=== PATIENT | male | born 1990 | race African-American/Black ===

== ENCOUNTER 2017-05-01 13:04 | Emergency (ER) | payer OTHER ==
[2017-05-01] MEDS ORDERED: Ibuprofen 200 MG TAB ONE (13:37)
== END 2017-05-01 13:42 | disposition home or self-care (01) ==
LOC: NAV ERS 13:04
DX: M26.601 Right temporomandibular joint disorder, unspecified (principal); F17.210 Nicotine dependence, cigarettes, uncomplicated; F20.9 Schizophrenia, unspecified; F31.9 Bipolar disorder, unspecified; Z79.899 Other long term (current) drug therapy
CPT/HCPCS: 99406

== ENCOUNTER 2019-12-02 20:03 | Emergency (ER) | payer OTHER ==
[2019-12-02 20:51] LABS: Hemoglobin 14.2 g/dL (14.0-18.0); Mean Corpuscular HGB CONC 31.6 g/dL (32.0-36.0); Mean Corpuscular Volume 91.9 fL (78.0-98.0); Mean Platelet Volume 8.2 fL (7.4-10.4); Platelet Count 232 thou/uL (130-400); Red Blood Cell (RBC) Count 4.88 mill/uL (4.70-6.10); White Blood Cell (WBC) Count 4.8 thou/uL (4.8-10.8)
[2019-12-02 20:59] LABS: Amphetamine Not Detected (NotDetected); Barbiturates Screen Not Detected (NotDetected); Benzodiazepine Screen Not Detected (NotDetected); Cocaine Metabolite Screen Not Detected (NotDetected); Medtox Control Line Valid? VALID (VALID); Methadone Not Detected (NotDetected); Methamphetamine Not Detected (NotDetected); Opiate Screen Not Detected (NotDetected); Oxycodone Screen Not Detected (NotDetected); Phencyclidine (PCP) Not Detected (NotDetected); THC/Cannabinoid Screen Not Detected (NotDetected); Tricyclic Screen Not Detected (NotDetected)
[2019-12-02 21:02] LABS: ALT (SGPT) 14 U/L (8-55); AST (SGOT) 18 U/L (5-34); Acetaminophen Less than 6.0 mcg/mL (10.0-30.0); Albumin 4.8 g/dL (3.5-5.0); Alcohol Less than 10 mg/dL (Less than 10); Alkaline Phosphatase 61 U/L (40-110); Anion Gap 17 mmol/L (10-20); BUN (Urea Nitrogen) 16 mg/dL (8.9-20.6); Bilirubin, Total 0.9 mg/dL (0.2-1.2); CK (CPK) 336 U/L (30-200); Calc. Creatinine Clearance 0 mL/min (70-130); Calcium 9.6 mg/dL (7.8-10.44); Carbon Dioxide 27 mmol/L (22-29); Chloride 101 mmol/L (98-107); Estimated GFR-MDRD 79; Globulin 2.8 g/dL (2.4-3.5); Glucose 146 mg/dL (70-105); Potassium 4.5 mmol/L (3.5-5.1); Protein, Total 7.6 g/dL (6.0-8.3); Salicylate Less than 8.0 mg/dL (15.0-30.0); Sodium 140 mmol/L (136-145)
[2019-12-02 21:16] LABS: Band 1 % (5-11); Eosinophils 4 % (0-10); Lymphocytes 68 % (21-51); MDiff Complete? YES; Neutrophil 27 % (42-75); RBC Morphology Normal
[2019-12-02] MEDS ORDERED: Sodium Chloride 0.9% 1,000 ML ONE (21:36)
== END 2019-12-03 04:33 ==
LOC: NAV ERS 20:03
DX: F20.9 Schizophrenia, unspecified (principal); F31.9 Bipolar disorder, unspecified; F17.210 Nicotine dependence, cigarettes, uncomplicated; Z79.899 Other long term (current) drug therapy
CPT/HCPCS: 80053; 80306; 80307; 82550; 84443; 85025; 99285; J7050

== ENCOUNTER 2020-02-18 15:58 | Emergency (ER) | payer OTHER ==
[2020-02-18 19:07] LABS: ALT (SGPT) 11 U/L (8-55); AST (SGOT) 14 U/L (5-34); Albumin 4.7 g/dL (3.5-5.0); Alkaline Phosphatase 55 U/L (40-110); Anion Gap 16 mmol/L (10-20); BUN (Urea Nitrogen) 12 mg/dL (8.9-20.6); Bilirubin, Total 0.4 mg/dL (0.2-1.2); Calc. Creatinine Clearance 0 mL/min (70-130); Calcium 9.3 mg/dL (7.8-10.44); Carbon Dioxide 24 mmol/L (22-29); Chloride 102 mmol/L (98-107); Globulin 2.9 g/dL (2.4-3.5); Glucose 130 mg/dL (70-105); Potassium 3.7 mmol/L (3.5-5.1); Protein, Total 7.6 g/dL (6.0-8.3); Sodium 138 mmol/L (136-145)
[2020-02-18 19:14] LABS: Bilirubin Negative (Negative); Blood, Urine Negative (Negative); Clarity Clear (Clear); Glucose, Urine (Dipstick) Negative (Negative); Ketone, Urine Negative (Negative); Leukocyte Negative (Negative); Nitrite Negative (Negative); Protein, Urine (Dipstick) Negative (Neg-Trace); pH, Urine 6.5 (5.0-9.0)
[2020-02-18 19:17] LABS: Amphetamine Not Detected (NotDetected); Barbiturates Screen Not Detected (NotDetected); Benzodiazepine Screen Not Detected (NotDetected); Cocaine Metabolite Screen Not Detected (NotDetected); Methadone Not Detected (NotDetected); Methamphetamine Not Detected (NotDetected); Opiate Screen Not Detected (NotDetected); Oxycodone Screen Not Detected (NotDetected); Phencyclidine (PCP) Not Detected (NotDetected); THC/Cannabinoid Screen Not Detected (NotDetected); Tricyclic Screen Not Detected (NotDetected)
[2020-02-18 19:18] LABS: Medtox Control Line Valid? VALID (VALID)
[2020-02-18 19:20] LABS: Acetaminophen Less than 10.0 mcg/mL (10.0-30.0); Alcohol Less than 10 mg/dL (Less than 10); Salicylate Less than 8.0 mg/dL (15.0-30.0)
[2020-02-18 19:30] LABS: #Eosinphils 0.3 thou/uL (0.0-0.7); #Lymphocytes 2.2 thou/uL (1.20-3.40); #Monocytes 0.5 thou/uL (0.11-0.59); #Neutrophils 2.4 thou/uL (1.40-6.50); %Basophils 0.8 % (0.0-1.0); %Eosinophils 6.3 % (0.0-10.0); %Lymphocytes 39.7 % (21.0-51.0); %Monocytes 9.2 % (0.0-10.0); Hemoglobin 16.2 g/dL (14.0-18.0); Mean Corpuscular HGB CONC 33.4 g/dL (32.0-36.0); Mean Corpuscular Hemoglobin 30.8 pg (27.0-31.0); Mean Corpuscular Volume 92.3 fL (78.0-98.0); Mean Platelet Volume 7.4 fL (7.4-10.4); Platelet Count 259 thou/uL (130-400); RBC Distribution Width 12.3 % (11.5-14.5); Red Blood Cell (RBC) Count 5.25 mill/uL (4.70-6.10); White Blood Cell (WBC) Count 5.4 thou/uL (4.8-10.8)
== END 2020-02-19 02:04 ==
LOC: NAV ERS 15:58
DX: F20.9 Schizophrenia, unspecified (principal); F17.200 Nicotine dependence, unspecified, uncomplicated; Z79.899 Other long term (current) drug therapy
CPT/HCPCS: 80053; 80306; 80307; 81003; 84443; 85025; 99285

== ENCOUNTER 2020-04-05 14:09 | Emergency (ER) | payer OTHER ==
[2020-04-05 14:50] LABS: #Basophils 0.1 thou/uL (0.0-0.2); #Eosinphils 0.2 thou/uL (0.0-0.7); #Lymphocytes 1.7 thou/uL (1.20-3.40); #Monocytes 0.5 thou/uL (0.11-0.59); %Basophils 0.9 % (0.0-1.0); %Eosinophils 2.8 % (0.0-10.0); %Lymphocytes 25.9 % (21.0-51.0); %Monocytes 8.1 % (0.0-10.0); %Neutrophils 62.3 % (42.0-75.0); Mean Corpuscular HGB CONC 33.4 g/dL (32.0-36.0); Mean Corpuscular Hemoglobin 30.1 pg (27.0-31.0); Mean Platelet Volume 7.6 fL (7.4-10.4); Platelet Count 223 thou/uL (130-400); RBC Distribution Width 11.9 % (11.5-14.5); Red Blood Cell (RBC) Count 4.99 mill/uL (4.70-6.10); White Blood Cell (WBC) Count 6.4 thou/uL (4.8-10.8)
[2020-04-05 14:55] LABS: ALT (SGPT) 14 U/L (8-55); AST (SGOT) 17 U/L (5-34); Acetaminophen Less than 6.0 mcg/mL (10.0-30.0); Albumin 4.2 g/dL (3.5-5.0); Alcohol Less than 10 mg/dL (Less than 10); Alkaline Phosphatase 53 U/L (40-110); Anion Gap 14 mmol/L (10-20); BUN (Urea Nitrogen) 5 mg/dL (8.9-20.6); Bilirubin, Total 0.5 mg/dL (0.2-1.2); CK (CPK) 452 U/L (30-200); Calc. Creatinine Clearance 0 mL/min (70-130); Calcium 8.4 mg/dL (7.8-10.44); Carbon Dioxide 23 mmol/L (22-29); Chloride 98 mmol/L (98-107); Globulin 2.6 g/dL (2.4-3.5); Glucose 104 mg/dL (70-105); Potassium 3.1 mmol/L (3.5-5.1); Protein, Total 6.8 g/dL (6.0-8.3); Salicylate Less than 8.0 mg/dL (15.0-30.0); Sodium 132 mmol/L (136-145)
[2020-04-05 15:13] LABS: Amphetamine Not Detected (NotDetected); Barbiturates Screen Not Detected (NotDetected); Benzodiazepine Screen Not Detected (NotDetected); Cocaine Metabolite Screen Not Detected (NotDetected); Medtox Control Line Valid? VALID (VALID); Methadone Not Detected (NotDetected); Methamphetamine Not Detected (NotDetected); Opiate Screen Not Detected (NotDetected); Oxycodone Screen Not Detected (NotDetected); Phencyclidine (PCP) Not Detected (NotDetected); THC/Cannabinoid Screen Not Detected (NotDetected); Tricyclic Screen Not Detected (NotDetected)
[2020-04-05 15:23] LABS: Bilirubin Negative (Negative); Blood, Urine Negative (Negative); Clarity Clear (Clear); Glucose, Urine (Dipstick) Negative (Negative); Ketone, Urine Negative (Negative); Leukocyte Negative (Negative); Nitrite Negative (Negative); Protein, Urine (Dipstick) Negative (Neg-Trace); Urobilinogen 0.2 mg/dL (Less than 2)
[2020-04-05] MEDS ORDERED: Haloperidol 5 MG TAB ONE (18:49)
[2020-04-06 00:12] LABS: SARS-CoV-2 NAA Rapid Test Not Detected (NotDetected)
[2020-04-06] MEDS ORDERED: Nicotine 21 MG PATCH ONE (07:48)
[2020-04-06] MEDS ORDERED: Potassium Chloride 20 MEQ TAB ONE (08:49)
[2020-04-06] MEDS ORDERED: Haloperidol 5 MG TAB ONE (11:09)
== END 2020-04-06 13:48 ==
LOC: NAV ERS 14:09
DX: F23 Brief psychotic disorder (principal); E87.6 Hypokalemia; F17.210 Nicotine dependence, cigarettes, uncomplicated; Z79.899 Other long term (current) drug therapy
CPT/HCPCS: 0240U; 80053; 80306; 80307; 81003; 82550; 84443; 85025; 99285

== ENCOUNTER 2020-09-23 19:53 | Emergency (ER) | payer MEDICARE, OTHER, MEDICAID ==
[2020-09-23 20:36] LABS: Bilirubin Negative (Negative); Blood, Urine Negative (Negative); Clarity Clear (Clear); Glucose, Urine (Dipstick) Negative (Negative); Ketone, Urine Negative (Negative); Leukocyte Negative (Negative); Nitrite Negative (Negative); Protein, Urine (Dipstick) Negative (Neg-Trace); Urobilinogen 0.2 mg/dL (Less than 2)
[2020-09-23 20:37] LABS: Specific Gravity, Urine 1.003 (1.002-1.036)
[2020-09-23 20:39] LABS: #Basophils 0.1 thou/uL (0.0-0.2); #Eosinphils 0.3 thou/uL (0.0-0.7); #Lymphocytes 4.1 thou/uL (1.20-3.40); #Monocytes 0.8 thou/uL (0.11-0.59); #Neutrophils 1.3 thou/uL (1.40-6.50); %Basophils 1.2 % (0.0-1.0); %Eosinophils 5.1 % (0.0-10.0); %Lymphocytes 62.2 % (21.0-51.0); %Monocytes 11.9 % (0.0-10.0); %Neutrophils 19.6 % (42.0-75.0); Hemoglobin 16.3 g/dL (14.0-18.0); Mean Corpuscular HGB CONC 31.8 g/dL (32.0-36.0); Mean Corpuscular Hemoglobin 28.8 pg (27.0-31.0); Mean Corpuscular Volume 90.7 fL (78.0-98.0); Mean Platelet Volume 7.7 fL (7.4-10.4); Platelet Count 297 thou/uL (130-400); RBC Distribution Width 12.5 % (11.5-14.5); Red Blood Cell (RBC) Count 5.66 mill/uL (4.70-6.10); White Blood Cell (WBC) Count 6.6 thou/uL (4.8-10.8)
[2020-09-23 20:48] LABS: ALT (SGPT) 13 U/L (8-55); AST (SGOT) 20 U/L (5-34); Acetaminophen Less than 6.0 mcg/mL (10.0-30.0); Albumin 4.5 g/dL (3.5-5.0); Alcohol Less than 10 mg/dL (Less than 10); Alkaline Phosphatase 54 U/L (40-110); Anion Gap 20 mmol/L (10-20); BUN (Urea Nitrogen) 13 mg/dL (8.9-20.6); Bilirubin, Total 0.9 mg/dL (0.2-1.2); CK (CPK) 479 U/L (30-200); Calc. Creatinine Clearance 0 mL/min (70-130); Calcium 9.7 mg/dL (7.8-10.44); Carbon Dioxide 20 mmol/L (22-29); Chloride 102 mmol/L (98-107); Globulin 3.3 g/dL (2.4-3.5); Glucose 110 mg/dL (70-105); Potassium 3.9 mmol/L (3.5-5.1); Protein, Total 7.8 g/dL (6.0-8.3); Salicylate Less than 8.0 mg/dL (15.0-30.0); Sodium 138 mmol/L (136-145)
[2020-09-23 20:54] LABS: Amphetamine Not Detected (NotDetected); Barbiturates Screen Not Detected (NotDetected); Benzodiazepine Screen Not Detected (NotDetected); Cocaine Metabolite Screen Not Detected (NotDetected); Medtox Control Line Valid? VALID (VALID); Methadone Not Detected (NotDetected); Methamphetamine Not Detected (NotDetected); Opiate Screen Not Detected (NotDetected); Oxycodone Screen Not Detected (NotDetected); Phencyclidine (PCP) Not Detected (NotDetected); THC/Cannabinoid Screen Not Detected (NotDetected); Tricyclic Screen Not Detected (NotDetected)
== END 2020-09-24 17:53 ==
LOC: NAV ERS 19:53
DX: F20.9 Schizophrenia, unspecified (principal); F17.210 Nicotine dependence, cigarettes, uncomplicated
CPT/HCPCS: 80053; 80306; 80307; 81003; 82550; 84443; 85025; 99285